=== PATIENT | female | born 1950 | race Caucasian/White ===

== ENCOUNTER 2017-11-22 08:41 | Inpatient (IN) | payer MEDICARE ==
[2017-11-22] MEDS: TIOTROPIUM INHALER/CAPSULE (SPIRIVA) INH (08:00)
[2017-11-22] MEDS: PANTOPRAZOLE 40MG TAB (PROTONIX) PO (09:00)
[2017-11-22] MEDS: HEPARIN SOD (PORCINE) 5000 UNITS/ML VIAL SC ×2 (09:00→20:24)
[2017-11-22] MEDS ORDERED: LIDOCAINE 1% MDV 20ML VIAL As Ordered ×2 (09:15→10:11)
[2017-11-22] MEDS ORDERED: MIDAZOLAM INJ 2 MG/2 ML VIAL (J2250) As Ordered ×2 (10:11)
[2017-11-22] MEDS ORDERED: FLUMAZENIL 0.5 MG/5 ML VIAL As Ordered (10:23)
[2017-11-22] MEDS ORDERED: KCL 20MEQ IN D5/NS 1000ML 1,000 ML IV (10:37)
[2017-11-22] MEDS ORDERED: BISACODYL 10 MG SUPP PR (10:45)
[2017-11-22] MEDS ORDERED: zolPIDEM TARTRATE 5 MG TAB PO (10:45)
[2017-11-22] MEDS ORDERED: NORCO, ANEXSIA 5/325MG TABLET (HYDROcodone/ACETAMINOPHEN) PO (10:45)
[2017-11-22] MEDS ORDERED: ONDANSETRON 4MG/2ML VIAL (J2405) IV (10:45)
[2017-11-22] MEDS ORDERED: ACETAMINOPHEN TAB 650MG DOSE (2X325MG) PO (10:45)
[2017-11-22 10:53] LABS: ABG BASE EXCESS -8.4 (-2.0-2.0); ABG HCO3 18.5 MEQ/L (22.0-26.0); ABG O2 SATURATION 99.5 % (95.0-99.0); ABG PARTIAL PRESSURE CO2 43.2 mmHg (35.0-45.0); ABG PARTIAL PRESSURE O2 242.6 mmHg (75.0-100.0); ABG STANDARD HCO3 17.8 MEQ/L (22.0-26.0); ABG TOTAL CO2 19.8 MEQ/L (23.0-31.0)
[2017-11-22 10:56] LABS: ABG pH (ARTERIAL) 7.252 UNITS (7.350-7.450)
[2017-11-22 11:08] LABS: BASO # 0.1 10^3/uL (0.0-0.2); BASO % 0.4 % (0.0-1.0); EOS # 0.2 10^3/uL (0.0-0.50); EOS % 0.9 % (0.0-3.0); HEMATOCRIT 45.4 % (36.0-47.0); HEMOGLOBIN 14.5 g/dl (12.0-15.5); IMMATURE GRANULOCYTE % 0.5 % (0-3.0); LYMPH # 3.1 10^3/uL (1.5-4.5); LYMPH % 14.3 % (24.0-44.0); MEAN CORPUSCULAR HEMOGLOBIN 29.2 pg (27.0-33.0); MEAN CORPUSCULAR HGB CONC 31.9 g/dl (32.0-36.5); MEAN CORPUSCULAR VOLUME 91.5 fl (80.0-96.0); MONO # 1.5 10^3/uL (0.0-0.8); MONO % 6.8 % (0.0-5.0); NEUTROPHILS # 16.7 10^3/uL (1.8-7.7); NEUTROPHILS % 77.1 % (36.0-66.0); PLATELET COUNT, AUTOMATED 257 10^3/uL (150-450); RED BLOOD COUNT 4.96 10^6/uL (4.00-5.40); RED CELL DISTRIBUTION WIDTH 13.7 % (11.5-14.5); WHITE BLOOD COUNT 21.6 10^3/uL (4.0-10.0)
[2017-11-22 11:32] LABS: ANION GAP 7 MEQ/L (8-16); BLOOD UREA NITROGEN 11 MG/DL (7-18); CARBON DIOXIDE LEVEL 27 MEQ/L (21-32); CHLORIDE LEVEL 107 MEQ/L (98-107); CREATININE FOR GFR 0.87 MG/DL (0.55-1.30); GLOMERULAR FILTRATION RATE > 60.0 (>45); GLUCOSE, FASTING 114 MG/DL (70-100); POTASSIUM SERUM 3.9 MEQ/L (3.5-5.1); SODIUM LEVEL 141 MEQ/L (136-145)
[2017-11-22] MEDS: PERCOCET 5MG/325MG TAB PO ×2 (12:26→20:24)
[2017-11-22] MEDS: predniSONE 5 MG TAB PO (12:26)
[2017-11-22] MEDS: LEVALBUTEROL 1.25 MG/0.5 ML CONCENTRATE NEB NEB ×2 (13:50→20:15)
[2017-11-22] MEDS: NICOTINE 21MG/24HR 1 EA TRANSDERMAL TD (14:13)
[2017-11-22] MEDS: GABAPENTIN 300 MG CAP PO (20:24)
[2017-11-22] MEDS: DOCUSATE SODIUM 100 MG CAP PO (20:24)
[2017-11-23] MEDS: LEVALBUTEROL 1.25 MG/0.5 ML CONCENTRATE NEB NEB ×5 (02:00→20:13)
[2017-11-23 04:51] LABS: BASO % 0.3 % (0.0-1.0); EOS # 0.1 10^3/uL (0.0-0.50); EOS % 1.1 % (0.0-3.0); HEMATOCRIT 45.2 % (36.0-47.0); HEMOGLOBIN 14.4 g/dl (12.0-15.5); IMMATURE GRANULOCYTE % 0.3 % (0-3.0); LYMPH # 2.4 10^3/uL (1.5-4.5); LYMPH % 19.5 % (24.0-44.0); MEAN CORPUSCULAR HGB CONC 31.9 g/dl (32.0-36.5); MEAN CORPUSCULAR VOLUME 91.1 fl (80.0-96.0); MONO # 1.4 10^3/uL (0.0-0.8); MONO % 11.3 % (0.0-5.0); NEUTROPHILS # 8.2 10^3/uL (1.8-7.7); NEUTROPHILS % 67.5 % (36.0-66.0); PLATELET COUNT, AUTOMATED 240 10^3/uL (150-450); RED BLOOD COUNT 4.96 10^6/uL (4.00-5.40); RED CELL DISTRIBUTION WIDTH 13.9 % (11.5-14.5); WHITE BLOOD COUNT 12.2 10^3/uL (4.0-10.0)
[2017-11-23 05:22] LABS: ANION GAP 6 MEQ/L (8-16); BLOOD UREA NITROGEN 9 MG/DL (7-18); CALCIUM LEVEL 9.2 MG/DL (8.8-10.2); CARBON DIOXIDE LEVEL 28 MEQ/L (21-32); CHLORIDE LEVEL 109 MEQ/L (98-107); CREATININE FOR GFR 0.77 MG/DL (0.55-1.30); GLOMERULAR FILTRATION RATE > 60.0 (>45); GLUCOSE, FASTING 81 MG/DL (70-100); POTASSIUM SERUM 4.7 MEQ/L (3.5-5.1); SODIUM LEVEL 143 MEQ/L (136-145)
[2017-11-23] MEDS: PERCOCET 5MG/325MG TAB PO ×3 (05:26→18:28)
[2017-11-23 05:27] LABS: ABG BASE EXCESS -0.4 (-2.0-2.0); ABG HCO3 23.7 MEQ/L (22.0-26.0); ABG O2 SATURATION 95.9 % (95.0-99.0); ABG PARTIAL PRESSURE CO2 37.1 mmHg (35.0-45.0); ABG PARTIAL PRESSURE O2 76.6 mmHg (75.0-100.0); ABG STANDARD HCO3 24.2 MEQ/L (22.0-26.0); ABG TOTAL CO2 24.8 MEQ/L (23.0-31.0); ABG pH (ARTERIAL) 7.423 UNITS (7.350-7.450)
[2017-11-23] MEDS: TIOTROPIUM INHALER/CAPSULE (SPIRIVA) INH (07:36)
[2017-11-23] MEDS: NICOTINE 21MG/24HR 1 EA TRANSDERMAL TD (08:04)
[2017-11-23] MEDS: DOCUSATE SODIUM 100 MG CAP PO ×2 (08:04→20:40)
[2017-11-23] MEDS: PANTOPRAZOLE 40MG TAB (PROTONIX) PO (08:04)
[2017-11-23] MEDS: predniSONE 5 MG TAB PO (08:04)
[2017-11-23] MEDS: HEPARIN SOD (PORCINE) 5000 UNITS/ML VIAL SC ×2 (08:05→20:41)
[2017-11-23] MEDS: MOM 30ML SUSPENSION UDC PO (08:05)
[2017-11-23] MEDS: INCRUSE ELLIPTA (PATIENT'S OWN MED) INH (16:58)
[2017-11-23] MEDS: GABAPENTIN 300 MG CAP PO (20:44)
[2017-11-24] MEDS: LEVALBUTEROL 1.25 MG/0.5 ML CONCENTRATE NEB NEB ×5 (01:42→20:00)
[2017-11-24 05:42] LABS: BASO # 0.1 10^3/uL (0.0-0.2); BASO % 0.5 % (0.0-1.0); EOS # 0.3 10^3/uL (0.0-0.50); EOS % 2.7 % (0.0-3.0); HEMOGLOBIN 14.7 g/dl (12.0-15.5); IMMATURE GRANULOCYTE % 0.4 % (0-3.0); LYMPH # 3.5 10^3/uL (1.5-4.5); LYMPH % 28.1 % (24.0-44.0); MEAN CORPUSCULAR HEMOGLOBIN 28.6 pg (27.0-33.0); MEAN CORPUSCULAR VOLUME 89.5 fl (80.0-96.0); MONO # 1.5 10^3/uL (0.0-0.8); NEUTROPHILS # 7.1 10^3/uL (1.8-7.7); NEUTROPHILS % 56.3 % (36.0-66.0); PLATELET COUNT, AUTOMATED 246 10^3/uL (150-450); RED BLOOD COUNT 5.14 10^6/uL (4.00-5.40); RED CELL DISTRIBUTION WIDTH 13.8 % (11.5-14.5); WHITE BLOOD COUNT 12.5 10^3/uL (4.0-10.0)
[2017-11-24 05:53] LABS: ANION GAP 7 MEQ/L (8-16); BLOOD UREA NITROGEN 8 MG/DL (7-18); CALCIUM LEVEL 9.1 MG/DL (8.8-10.2); CARBON DIOXIDE LEVEL 25 MEQ/L (21-32); CHLORIDE LEVEL 109 MEQ/L (98-107); CREATININE FOR GFR 0.69 MG/DL (0.55-1.30); GLOMERULAR FILTRATION RATE > 60.0 (>45); GLUCOSE, FASTING 87 MG/DL (70-100); SODIUM LEVEL 141 MEQ/L (136-145)
[2017-11-24] MEDS: LEVALBUTEROL HFA 45MCG/ACT 15 GM INHALER INH (08:41)
[2017-11-24] MEDS: MOM 30ML SUSPENSION UDC PO (09:00)
[2017-11-24] MEDS: HEPARIN SOD (PORCINE) 5000 UNITS/ML VIAL SC ×2 (10:04→20:59)
[2017-11-24] MEDS: NICOTINE 21MG/24HR 1 EA TRANSDERMAL TD (10:04)
[2017-11-24] MEDS: predniSONE 5 MG TAB PO (10:05)
[2017-11-24] MEDS: DOCUSATE SODIUM 100 MG CAP PO ×2 (10:05→20:59)
[2017-11-24] MEDS: PANTOPRAZOLE 40MG TAB (PROTONIX) PO (10:05)
[2017-11-24] MEDS: INCRUSE ELLIPTA (PATIENT'S OWN MED) INH (13:55)
[2017-11-24] MEDS: PERCOCET 5MG/325MG TAB PO (15:02)
[2017-11-24] MEDS: GABAPENTIN 300 MG CAP PO (20:59)
[2017-11-25] MEDS: LEVALBUTEROL 1.25 MG/0.5 ML CONCENTRATE NEB NEB ×4 (01:20→20:25)
[2017-11-25 05:26] LABS: BASO # 0.1 10^3/uL (0.0-0.2); BASO % 0.5 % (0.0-1.0); EOS # 0.4 10^3/uL (0.0-0.50); EOS % 3.5 % (0.0-3.0); HEMATOCRIT 47.2 % (36.0-47.0); HEMOGLOBIN 15.1 g/dl (12.0-15.5); IMMATURE GRANULOCYTE % 0.3 % (0-3.0); LYMPH # 3.5 10^3/uL (1.5-4.5); LYMPH % 30.5 % (24.0-44.0); MEAN CORPUSCULAR HEMOGLOBIN 28.8 pg (27.0-33.0); MEAN CORPUSCULAR VOLUME 90.1 fl (80.0-96.0); MONO # 1.4 10^3/uL (0.0-0.8); MONO % 12.1 % (0.0-5.0); NEUTROPHILS # 6.1 10^3/uL (1.8-7.7); NEUTROPHILS % 53.1 % (36.0-66.0); PLATELET COUNT, AUTOMATED 272 10^3/uL (150-450); RED BLOOD COUNT 5.24 10^6/uL (4.00-5.40); RED CELL DISTRIBUTION WIDTH 13.9 % (11.5-14.5); WHITE BLOOD COUNT 11.4 10^3/uL (4.0-10.0)
[2017-11-25 05:43] LABS: ANION GAP 9 MEQ/L (8-16); BLOOD UREA NITROGEN 13 MG/DL (7-18); CALCIUM LEVEL 9.6 MG/DL (8.8-10.2); CARBON DIOXIDE LEVEL 27 MEQ/L (21-32); CHLORIDE LEVEL 107 MEQ/L (98-107); CREATININE FOR GFR 0.78 MG/DL (0.55-1.30); GLOMERULAR FILTRATION RATE > 60.0 (>45); GLUCOSE, FASTING 86 MG/DL (70-100); POTASSIUM SERUM 4.2 MEQ/L (3.5-5.1); SODIUM LEVEL 143 MEQ/L (136-145)
[2017-11-25] MEDS: predniSONE 5 MG TAB PO (08:28)
[2017-11-25] MEDS: PANTOPRAZOLE 40MG TAB (PROTONIX) PO (08:28)
[2017-11-25] MEDS: DOCUSATE SODIUM 100 MG CAP PO ×2 (08:28→20:16)
[2017-11-25] MEDS: NICOTINE 21MG/24HR 1 EA TRANSDERMAL TD (08:29)
[2017-11-25] MEDS: MOM 30ML SUSPENSION UDC PO (08:29)
[2017-11-25] MEDS: HEPARIN SOD (PORCINE) 5000 UNITS/ML VIAL SC ×2 (08:29→20:18)
[2017-11-25] MEDS: INCRUSE ELLIPTA (PATIENT'S OWN MED) INH (13:00)
[2017-11-25] MEDS ORDERED: SLF 3 ML SYR IV (13:15)
[2017-11-25] MEDS: PERCOCET 5MG/325MG TAB PO ×2 (14:27→22:01)
[2017-11-25] MEDS: SLF 3 ML SYR IV ×2 (15:00→22:01)
[2017-11-25] MEDS: GABAPENTIN 300 MG CAP PO (20:17)
[2017-11-26] MEDS: LEVALBUTEROL 1.25 MG/0.5 ML CONCENTRATE NEB NEB ×2 (02:00→09:31)
[2017-11-26] MEDS: SLF 3 ML SYR IV (05:28)
[2017-11-26 05:55] LABS: BASO # 0.1 10^3/uL (0.0-0.2); BASO % 0.6 % (0.0-1.0); EOS # 0.5 10^3/uL (0.0-0.50); EOS % 4.3 % (0.0-3.0); HEMATOCRIT 47.2 % (36.0-47.0); HEMOGLOBIN 15.1 g/dl (12.0-15.5); IMMATURE GRANULOCYTE % 0.3 % (0-3.0); LYMPH # 3.8 10^3/uL (1.5-4.5); LYMPH % 31.8 % (24.0-44.0); MEAN CORPUSCULAR VOLUME 90.6 fl (80.0-96.0); MONO # 1.3 10^3/uL (0.0-0.8); MONO % 11.2 % (0.0-5.0); NEUTROPHILS # 6.2 10^3/uL (1.8-7.7); NEUTROPHILS % 51.8 % (36.0-66.0); PLATELET COUNT, AUTOMATED 260 10^3/uL (150-450); RED BLOOD COUNT 5.21 10^6/uL (4.00-5.40); RED CELL DISTRIBUTION WIDTH 13.8 % (11.5-14.5); WHITE BLOOD COUNT 11.9 10^3/uL (4.0-10.0)
[2017-11-26 05:57] LABS: ANION GAP 10 MEQ/L (8-16); BLOOD UREA NITROGEN 14 MG/DL (7-18); CARBON DIOXIDE LEVEL 23 MEQ/L (21-32); CHLORIDE LEVEL 108 MEQ/L (98-107); CREATININE FOR GFR 0.69 MG/DL (0.55-1.30); GLOMERULAR FILTRATION RATE > 60.0 (>45); GLUCOSE, FASTING 84 MG/DL (70-100); POTASSIUM SERUM 4.1 MEQ/L (3.5-5.1); SODIUM LEVEL 141 MEQ/L (136-145)
[2017-11-26] MEDS: PANTOPRAZOLE 40MG TAB (PROTONIX) PO (08:38)
[2017-11-26] MEDS: predniSONE 5 MG TAB PO (08:39)
[2017-11-26] MEDS: NICOTINE 21MG/24HR 1 EA TRANSDERMAL TD (08:39)
[2017-11-26] MEDS: MOM 30ML SUSPENSION UDC PO (08:40)
[2017-11-26] MEDS: DOCUSATE SODIUM 100 MG CAP PO (08:40)
[2017-11-26] MEDS: HEPARIN SOD (PORCINE) 5000 UNITS/ML VIAL SC (08:40)
== END 2017-11-26 11:10 | disposition home or self-care (01) | DRG 199 ==
LOC: M RADPRO 08:41 → M ICU 11:18 → M PCU 11-23 16:54
PROC: 0W9930Z Drainage of Right Pleural Cavity with Drainage Device, Percutaneous Approach (ICD-10-PCS; principal; 2017-11-22)
PROC: 0BBF3ZX Excision of Right Lower Lung Lobe, Percutaneous Approach, Diagnostic (ICD-10-PCS; 2017-11-22)
DX: J93.0 Spontaneous tension pneumothorax (principal); J96.01 Acute respiratory failure with hypoxia; E87.2 Acidosis; C34.31 Malignant neoplasm of lower lobe, right bronchus or lung; I45.81 Long QT syndrome; J44.9 Chronic obstructive pulmonary disease, unspecified; F17.210 Nicotine dependence, cigarettes, uncomplicated; Z90.49 Acquired absence of other specified parts of digestive tract; Z88.1 Allergy status to other antibiotic agents; Z88.6 Allergy status to analgesic agent; Z88.8 Allergy status to other drugs, medicaments and biological substances; Z79.51 Long term (current) use of inhaled steroids; Z79.52 Long term (current) use of systemic steroids